=== PATIENT | female | born 1990 | race Caucasian/White ===

== ENCOUNTER 2016-11-23 01:45 | Inpatient (IN) | payer OTHER ==
[~2016-11-23] VITALS: Ht 165.1 cm; Wt 66.7 kg
[2016-11-23] VITALS (12 sets, daily range): BP systolic 118–179; BP diastolic 64–87
[~2016-11-23 01:45] MED LIST: FEOSOL325 MG PO; MACROBID100 MG PO; MOTRIN800 MG PO; Motrin PO; NOHOMEMEDS; SUBOXONE 8 MG-1 EAC2 SL; SYNTHROID100 MCG PO; SYNTHROID175 MCG PO; Vitron-C,Hematogen,F PO
[2016-11-23] MEDS ORDERED: SUBUTEX PO (02:28)
[2016-11-23 03:03] LABS: EOSINOPHIL (%) 0.5 % (0-5); EOSINOPHIL COUNT 0.1 K/uL (0-0.3); HEMATOCRIT 33.3 % (36.0-46.0); IMMATURE GRANULOCYTE (%) 0.5 % (0.0-0.7); IMMATURE GRANULOCYTE COUNT 0.1 K/uL; INSTRUMENT ABS NEUTROPHIL CT 9.6 K/uL; LYMPHOCYTE COUNT 1.1 K/uL (1.0-2.8); MCH 30.1 PG (29.0-34.0); MCHC 34.8 G/DL (30.0-36.0); MCV 86.5 FL (83-99); MEAN PLAT.VOLUME 10.8 uM^3 (9.5-12.4); MONOCYTE COUNT 0.7 K/uL (0-0.8); NEUTROPHIL (%) 83.1 % (45-76); NEUTROPHIL COUNT 9.6 K/uL (1.8-6.4); PLATELET COUNT 195 K/uL (156-360); RBC DIS.WIDTH-CV 12.8 % (11.8-14.6); RBC DIS.WIDTH-SD 39.8 % (39-53); RED BLOOD COUNT 3.85 M/uL (3.80-5.20); WHITE BLOOD COUNT 11.6 K/uL (4.1-10.2)
[2016-11-23] MEDS ORDERED: IBUPROFEN800 MG PO (03:38)
[2016-11-23 03:39] LABS: AMPHETAMINES QUANT VALUE 0 NG/ML; BARBITUATES QUANT VALUE 0 NG/ML; BENZODIAZEPINES QUANT VALUE 0 NG/ML; BENZODIAZEPINES, URINE SCREEN Negative (200 ng/mL); OPIATES QUANTITATIVE VALUE 0 NG/ML; PHENCYCLIDINE QUANT VALUE 0 NG/ML
[2016-11-24 07:37] VITALS: BP 118/67
[2016-11-24 11:28] VITALS: BP 119/78
[2016-11-24 15:23] VITALS: BP 116/68
[2016-11-24 22:51] VITALS: BP 146/91
[2016-11-25 00:33] VITALS: BP 135/83
[2016-11-25 07:37] VITALS: BP 130/75
== END 2016-11-25 13:07 | disposition home or self-care (01) | DRG 775 ==
LOC: LDRP-OP 01:45 → 2WEST 01:46 → LDRP-OP 01-20 09:44
PROVIDERS: Nurse Practitioner
DX: O60.14X0 Preterm labor third trimester with preterm delivery third trimester, not applicable or unspecified (principal); O99.02 Anemia complicating childbirth; D50.9 Iron deficiency anemia, unspecified; Z3A.36 36 weeks gestation of pregnancy; Z37.0 Single live birth; O99.324 Drug use complicating childbirth; F11.20 Opioid dependence, uncomplicated; O99.284 Endocrine, nutritional and metabolic diseases complicating childbirth; E07.9 Disorder of thyroid, unspecified; O99.62 Diseases of the digestive system complicating childbirth; K58.9 Irritable bowel syndrome, unspecified; O99.344 Other mental disorders complicating childbirth; F32.9 Major depressive disorder, single episode, unspecified; F41.9 Anxiety disorder, unspecified; O99.334 Smoking (tobacco) complicating childbirth; F17.210 Nicotine dependence, cigarettes, uncomplicated; Z85.41 Personal history of malignant neoplasm of cervix uteri; Z85.850 Personal history of malignant neoplasm of thyroid
CPT/HCPCS: 80306 90; 85025; J0571; J1050; J2540; J7120